=== PATIENT | female | born 1995 | race Caucasian/White ===

== ENCOUNTER 2021-11-13 15:49 | Emergency (ER) | payer OTHER, SELFPAY ==
[2021-11-13 15:55] VITALS: BP 103/63; PULSE 64
== END 2021-11-13 19:07 | disposition left against medical advice (07) ==
PROVIDERS: Emergency Provider Emergency Medicine
DX: R55 Syncope and collapse (principal)

== ENCOUNTER 2022-02-14 08:02 | Emergency (ER) | payer OTHER, SELFPAY ==
--- NOTE | ~2022-02-14 | CT_ITS ---
EXAMINATION: CT BRAIN AND CT CERVICAL SPINE WITHOUT CONTRAST CLINICAL INFORMATION: Seizure, fall and neck injury. COMPARISON: None. TECHNIQUE: 5 mm thin axial and reformatted 2 mm thin sagittal and coronal images of brain were obtained. Subsequently, axial 3 mm thin and reformatted 2 mm thin sagittal and coronal images of cervical spine were obtained. DLP: 1129 mGy-cm. FINDINGS: BRAIN: There is no acute intra-axial, extra-axial bleed, masses or midline shift. There is no acute infarction evolution. No edema. The lateral ventricles are asymmetrical in appearance but normal size and configuration without enlargement. Bone windows reveal no calvarial abnormality. Bilateral paranasal sinuses and mastoid air cells are well aerated. There are small polyps or retention cysts bilateral maxillary sinuses. There is no scalp soft tissue swelling. The mastoid sinuses are clear. CERVICAL SPINE: There is mild straightening of the cervical lordosis. The vertebral heights, alignment and disc heights are normal. There is no visible acute fracture, dislocation or subluxation seen. The craniovertebral junction and the C1-C2 alignment are normal. The prevertebral soft tissues are normal. There is a moderate-sized heterogeneous hypodense 1.6 cm nodule right thyroid lobe. The central trachea and the bronchi are widely patent. The lung apices are clear. CT/CT cervical spine wo con IMPRESSION: No acute intracranial process seen. There is no acute fracture, dislocation or subluxation seen. Moderate-sized right thyroid nodule.
--- NOTE | ~2022-02-14 | CT_ITS ---
EXAMINATION: CT BRAIN AND CT CERVICAL SPINE WITHOUT CONTRAST CLINICAL INFORMATION: Seizure, fall and neck injury. COMPARISON: None. TECHNIQUE: 5 mm thin axial and reformatted 2 mm thin sagittal and coronal images of brain were obtained. Subsequently, axial 3 mm thin and reformatted 2 mm thin sagittal and coronal images of cervical spine were obtained. DLP: 1129 mGy-cm. FINDINGS: BRAIN: There is no acute intra-axial, extra-axial bleed, masses or midline shift. There is no acute infarction evolution. No edema. The lateral ventricles are asymmetrical in appearance but normal size and configuration without enlargement. Bone windows reveal no calvarial abnormality. Bilateral paranasal sinuses and mastoid air cells are well aerated. There are small polyps or retention cysts bilateral maxillary sinuses. There is no scalp soft tissue swelling. The mastoid sinuses are clear. CERVICAL SPINE: There is mild straightening of the cervical lordosis. The vertebral heights, alignment and disc heights are normal. There is no visible acute fracture, dislocation or subluxation seen. The craniovertebral junction and the C1-C2 alignment are normal. The prevertebral soft tissues are normal. There is a moderate-sized heterogeneous hypodense 1.6 cm nodule right thyroid lobe. The central trachea and the bronchi are widely patent. The lung apices are clear. CT/CT head/brain wo con IMPRESSION: No acute intracranial process seen. There is no acute fracture, dislocation or subluxation seen. Moderate-sized right thyroid nodule.
[2022-02-14 08:15] VITALS: BP 108/48; BP 114/66; PULSE 74; PULSE 93; RESP 18; TEMP 36.5; O2SAT 98; O2SAT 99; BMI 25.8
--- NOTE | 2022-02-14 08:36 | ECG_ITS ---
Test Reason : SEIZURE Blood Pressure : / mmHG Vent. Rate : 078 BPM Atrial Rate : 078 BPM P-R Int : 146 ms QRS Dur : 084 ms QT Int : 392 ms P-R-T Axes : 077 088 074 degrees QTc Int : 446 ms Normal sinus rhythm with sinus arrhythmia Septal infarct , age undetermined - cuuld be related to lead placement/body habitus Abnormal ECG No previous ECGs available Referred By: Aleksandar Levin Electronically Signed By:TERELL MITCHELL
--- NOTE | 2022-02-14 08:36 | ED.GENADULT ---
HPI - General Adult General Chief complaint: Seizure Stated complaint: FEVER,SEIZURE FOUND BY MOM Time Seen by Provider: 02/14/22 08:19 Source: patient Mode of arrival: ambulatory Limitations: no limitations History of Present Illness HPI narrative: 27-year-old female brought to the ED for evaluation of seizure. Patient was found by mother having a seizure in the bathroom. Patient states she woke up this morning feeling off and left-sided tongue was hurting like she had bit it. Next thing patient remembers that she woke up in the bathroom. EMS states and mother informed her that she had a seizure. Mother informed her that she shaking and foaming at the mouth. Patient realized her underwear was soiled. Patient believe she has seizure in her sleep and when she woke up she realized she bit her tongue and had a 2nd seizure in the bathroom. Patient states a month ago she had also a seizure episode witnessed by her daughter and boyfriend. Patient states she went to 2 hospitals but never had been worked up for seizure because she left due to long waiting in the ER waiting room. Patient denies any neck stiffness, fever, or photophobia. Patient denies any paralysis of extremities, loss of vision, facial drooping, slurred speech, or drug use.. Related Data Previous Rx's Medication Instructions Recorded levetiracetam 500 mg tablet 500 mg PO Q12H 14 Days #28 tab 02/14/22 ([place]) Allergies Allergy/AdvReac Type Severity Reaction Status Date / Time No Known Allergies Allergy Unverified 08/04/20 17:02 [No Known Allergies*] seasonal Allergy Unknown Uncoded 11/12/19 00:00 Review of Systems Review of Systems: Seizure. Yes all other systems are reviewed and are negative Physical Exam ED Vital Signs: Vital Signs - 24 hr 02/14/22 08:15 02/14/22 14:54 Temperature 97.7 F 97.8 F Pulse Rate 74 70 Respiratory Rate 18 16 Blood Pressure 108/48 L 113/56 L Pulse Oximetry 99 BMI result Body Mass Index 25.8 Const General: cooperative, healthy appearing, comfortable, no acute distress, well developed, alert, awake and Physically active Orientation/consciousness: patient oriented x3 HENMT Head: Yes normal to inspection, Yes No palpable skull fracture present, Yes normocephalic, Yes atraumatic, No abrasion, No Acrocyanosis present, No Davis's sign, No contusion, No cranial bruits, No hematoma, No laceration, No occipital foramen tenderness, No palpable skull fracture, No raccoon eyes, No scalp lesion, No scalp tenderness, No Temporal artery tenderness present and No periorbital ecchymosis Ears: hearing grossly normal bilaterally, external ears normal, TM's normal bilaterally, EAC's normal, mastoids normal and no periauricular adenopathy Mouth/tongue images: 1. Bite mega/abrasion. Negative for active bleeding. Eyes Other: Negative for photophobia. Negative for nystagmus General: appearance normal, both eyes and all related structures Neck Other: Negative for signs of meningitis Neck: Yes normal visual inspection, Yes full ROM, Yes no lymphadenopathy, Yes no meningeal signs, Yes trachea midline, Yes supple, No anterior neck swelling, No lymphadenopathy, No midline deformity, No positive Brudzinski's sign, No positive Kernig's sign and No tender Chest Chest palpation & inspection: normal inspection of the chest and normal palpation of entire chest wall Resp Effort & Inspection: normal respiratory effort and able to speak in complete sentences Auscultation: clear to auscultation bilaterally Cardio Jugular venous distension: no JVD Heart sounds: S1 normal heart sound present and S2 normal heart sound present GI Inspection: Yes normal to inspection and No abdominal wall ecchymosis Palpation (GI): Soft to palpation, not firm, nontender, no guarding and not rigid General: No CVA tenderness and Yes no CVA tenderness Back/Spine/Pelvis Back: no CVA tenderness, No CVA tenderness and No back tenderness Skin General skin exam: no rashes or lesions noted and elasticity normal Neuro Other: Negative for facial droop. All extremities equal strength 5+. [id number] and rapid hand movement intact. Negative pronator drift. Negative slurred speech. Patient has movement in all extremities. Normal gait. Negative Romberg. Negative slurred speech. General: patient oriented x3 and no meningeal signs Extrem General: Yes normal to inspection and Yes full ROM Psych Appearance: grossly normal, well kempt and not disheveled Course Course Course Narrative: Presently history physical exam does not indicate meningitis. Patient denies ever having fever. Will do medical workup for seizure including labs, head CT scan, evaluation of electrolytes, and UA. Also EKG and troponin. Reevaluation(s) Reevaluation #1: Head CT came back negative for any brain mass or bleed. CT scan negative for any disc cervical fracture. Labs negative for any electrolyte deficiencies. EKG and troponin came back normal. Urine negative for signs of infection. Glucose normal. Patient given Keppra. Patient will be discharged with Keppra and given contact information for our neurologist. [facility] came and stated that they have tried to make appointment with Neurology throught the primary care in the past and has been hard to see so they will contact our neurologist. Not suspecting meningitis. Patient made aware of right thyroid nodule found on CT scan. Patient alert oriented x3. Negative for any neuro deficits. Patient denies ever having a fever. EMS report did not document any seizure. patient had normotensive temparature. Time: 14:22 Medical Decision Making MDM Narrative Medical decision making narrative: Seizure Lab Data Result diagrams: 02/14/22 09:52 02/14/22 09:52 Labs: Lab Results 02/14/22 02/14/22 02/14/22 Range/Units 09:51 09:52 09:52 WBC 12.4 H (4.8-10.8) X10*3/uL RBC 4.77 (4.20-5.50) X10*6/uL Hgb 13.9 (12.0-16.0) g/dl Hct 41.8 (37.0-47.0) % MCV 87.6 (80.0-98.0) fL MCH 29.1 (27.0-33.0) pg MCHC 33.3 (31.0-35.0) g/dl RDW 12.6 (11.0-16.0) % Plt Count 255 (160-400) X10*3/uL MPV 10.1 (9.4-12.3) fL Immature Gran % (Auto) 0.2 (0.0-0.4) % Neut % (Auto) 91.7 H (45-73) % Lymph % (Auto) 5.1 L (20-40) % [place] % (Auto) 2.6 (2-11) % Eos % (Auto) 0.2 (0-4) % Baso % (Auto) 0.2 (0-2) % Lymph # (Auto) 0.6 L (1.2-4.9) X10*3/uL [place] # (Auto) 0.3 (0.1-1.2) X10*3/uL Eos # (Auto) 0.0 (0.0-0.4) X10*3/uL Baso # (Auto) 0.0 (0.0-0.2) X10*3/uL Abs Immat Gran (auto) 0.03 (0.00-0.03) X10*3/uL Absolute Neuts (auto) 11.4 H (2.0-8.3) x10*3/uL Absolute Nucleated RBC 0.000 (0.0-0.012) X10*3/uL Nucleated RBC % (auto) 0.0 (0.0-0.2) /100WBC Smear Tech's Comments VERIFIED PT 12.3 (9.9-13.0) SEC INR 1.1 (0.9-1.1) APTT 28.3 (24.1-38.0) SEC Sodium (135-145) mmol/L Potassium (3.3-5.1) mmol/L Chloride (96-108) mmol/L Carbon Dioxide (22-29) mmol/L Anion Gap (12-20) BUN (9-16) mg/dL Creatinine (0.5-1.4) mg/dL Estim Creat Clear Calc Estimated GFR Random Glucose (60-115) mg/dL Calcium (8.4-10.2) mg/dL Magnesium (1.6-2.6) mg/dL Total Bilirubin (0.0-1.0) mg/dL AST (5-31) U/L ALT (0-31) U/L Alkaline Phosphatase (39-117) U/L Troponin I High Sens < 3.5 (<3.5-17.0) ng/L Total Protein (6.5-8.0) g/dL Albumin (3.5-5.0) g/dL Beta HCG, Quant mIU/mL Urine Color Urine Appearance Urine pH (5.0-8.0) Ur Specific [place] (1.005-1.025) Urine Protein (NEG-TRACE) MG/DL Urine Glucose (UA) (NEG) MG/DL Urine Ketones (NEG) MG/DL Urine Blood (NEG) Urine Nitrite (NEG) Ur Leukocyte Esterase (NEG) Influenza Type A (PCR) (Negative) Influenza Type B (PCR) (Negative) RSV RNA Qual (PCR) (Negative) SARS-CoV-2 RNA (RT-PCR) (Negative) 02/14/22 02/14/22 02/14/22 Range/Units 09:52 09:52 13:54 WBC (4.8-10.8) X10*3/uL RBC (4.20-5.50) X10*6/uL Hgb (12.0-16.0) g/dl Hct (37.0-47.0) % MCV (80.0-98.0) fL MCH (27.0-33.0) pg MCHC (31.0-35.0) g/dl RDW (11.0-16.0) % Plt Count (160-400) X10*3/uL MPV (9.4-12.3) fL Immature Gran % (Auto) (0.0-0.4) % Neut % (Auto) (45-73) % Lymph % (Auto) (20-40) % [place] % (Auto) (2-11) % Eos % (Auto) (0-4) % Baso % (Auto) (0-2) % Lymph # (Auto) (1.2-4.9) X10*3/uL [place] # (Auto) (0.1-1.2) X10*3/uL Eos # (Auto) (0.0-0.4) X10*3/uL Baso # (Auto) (0.0-0.2) X10*3/uL Abs Immat Gran (auto) (0.00-0.03) X10*3/uL Absolute Neuts (auto) (2.0-8.3) x10*3/uL Absolute Nucleated RBC (0.0-0.012) X10*3/uL Nucleated RBC % (auto) (0.0-0.2) /100WBC Smear Tech's Comments PT (9.9-13.0) SEC INR (0.9-1.1) APTT (24.1-38.0) SEC Sodium 139 (135-145) mmol/L Potassium 4.2 (3.3-5.1) mmol/L Chloride 108 (96-108) mmol/L Carbon Dioxide 25 (22-29) mmol/L Anion Gap 10 L (12-20) BUN 13 (9-16) mg/dL Creatinine 0.81 (0.5-1.4) mg/dL Estim Creat Clear Calc 93.2 Estimated GFR > 60 Random Glucose 111 (60-115) mg/dL Calcium 9.4 (8.4-10.2) mg/dL Magnesium 2.3 (1.6-2.6) mg/dL Total Bilirubin 0.9 (0.0-1.0) mg/dL AST 10 (5-31) U/L ALT 13 (0-31) U/L Alkaline Phosphatase 62 (39-117) U/L Troponin I High Sens (<3.5-17.0) ng/L Total Protein 7.1 (6.5-8.0) g/dL Albumin 4.6 (3.5-5.0) g/dL Beta HCG, Quant < 2 mIU/mL Urine Color YELLOW Urine Appearance HAZY Urine pH 5.5 (5.0-8.0) Ur Specific [place] >= 1.030 H (1.005-1.025) Urine Protein NEG (NEG-TRACE) MG/DL Urine Glucose (UA) NEG (NEG) MG/DL Urine Ketones 40 (NEG) MG/DL Urine Blood NEG (NEG) Urine Nitrite NEG (NEG) Ur Leukocyte Esterase NEG (NEG) Influenza Type A (PCR) NEGATIVE (Negative) Influenza Type B (PCR) NEGATIVE (Negative) RSV RNA Qual (PCR) NEGATIVE (Negative) SARS-CoV-2 RNA (RT-PCR) NEGATIVE (Negative) ECG Data Interpretation: Normal sinus rhythm. Ventricular rate 78. Pr interval 146. QRS 84. QTC 446. Negative STEMI Discharge Plan Discharge Clinical Impression: Seizure Patient Disposition: Home, Self-Care Instructions: New-Onset Seizure in Adults (ED) Additional Instructions: You need to follow-up with your primary care provider and neurologist for further investigation into new seizures you have been having for the past 2 months. He will be discharged with Chas. Return to the ED immediately for any neck stiffness, fever, chills, nausea, vomiting, paralysis of extremities, tractable seizure, chest pain, shortness of breath, weakness, dizziness, or any other concerning symptoms. Prescriptions: New levetiracetam [Keppra] 500 mg tablet 500 mg PO Q12H 14 Days Qty: 28 0RF Referrals: Carlos Olsen MD [Physician] - 2 days (New onset seizure the past 2 months.) Stand Alone Forms: Work/School Release Interventions: ED Discharge Assessment Last Done: 02/14/22 14:56 Discharge Date/Time: 02/14/22 14:56 Print Language: Sinhala
[2022-02-14] MEDS: Acetaminophen 325 MG TABLET 650 MG PO (08:43)
[2022-02-14] MEDS: 0.9 % Sodium Chloride 1,000 ML 999 ML IV (08:45)
[2022-02-14 09:59] LABS: Basophils Percent Auto 0.2 % (0-2); Eosinophils Percent Auto 0.2 % (0-4); Hematocrit 41.8 % (37.0-47.0); Hemoglobin 13.9 g/dl (12.0-16.0); Imm Gran Abs Auto 0.03 X10*3/uL (0.00-0.03); Imm Gran Pct Auto 0.2 % (0.0-0.4); Lymphocytes Absolute Auto 0.6 X10*3/uL (1.2-4.9); Lymphocytes Percent Auto 5.1 % (20-40); MANUAL DIFF FLAG SCAN; Mean Corpuscular HGB Conc 33.3 g/dl (31.0-35.0); Mean Corpuscular Hemoglobin 29.1 pg (27.0-33.0); Mean Corpuscular Volume 87.6 fL (80.0-98.0); Mean Platelet Volume 10.1 fL (9.4-12.3); Monocytes Absolute Auto 0.3 X10*3/uL (0.1-1.2); Monocytes Percent Auto 2.6 % (2-11); Neutrophils Absolute Auto 11.4 x10*3/uL (2.0-8.3); Neutrophils Percent Auto 91.7 % (45-73); Platelet Count 255 X10*3/uL (160-400); Red Blood Count 4.77 X10*6/uL (4.20-5.50); Red Cell Distribution Width 12.6 % (11.0-16.0); SCAN SMEAR FLAG 1; White Blood Count 12.4 X10*3/uL (4.8-10.8)
[2022-02-14 10:08] LABS: INTERNATIONAL NORM RATIO 1.1 (0.9-1.1); Prothrombin Time 12.3 SEC (9.9-13.0)
[2022-02-14 10:11] LABS: Partial Thromboplastin Time 28.3 SEC (24.1-38.0)
[2022-02-14 10:21] LABS: Alanine Aminotransferase 13 U/L (0-31); Albumin Level 4.6 g/dL (3.5-5.0); Alkaline Phosphatase 62 U/L (39-117); Anion Gap 10 (12-20); Aspartate Amino Transferase 10 U/L (5-31); Bilirubin Total 0.9 mg/dL (0.0-1.0); Blood Urea Nitrogen 13 mg/dL (9-16); Calcium 9.4 mg/dL (8.4-10.2); Carbon Dioxide 25 mmol/L (22-29); Chloride 108 mmol/L (96-108); Creatinine Clr Calc Pharmacy 93.2; Estimated Glomerular Filt Rate > 60; Glucose Random 111 mg/dL (60-115); Magnesium 2.3 mg/dL (1.6-2.6); Potassium 4.2 mmol/L (3.3-5.1); Sodium 139 mmol/L (135-145); Total Protein 7.1 g/dL (6.5-8.0)
[2022-02-14 10:25] LABS: SLIDE REVIEW VERIFIED
[2022-02-14 10:27] LABS: Troponin-I High Sensitivity < 3.5 ng/L (<3.5-17.0)
[2022-02-14 10:35] LABS: Influenza A PCR NEGATIVE (Negative); Influenza B PCR NEGATIVE (Negative); Resp Syncy Virus RNA Qual PCR NEGATIVE (Negative); SARS COV2 PCR INHOUSE NEGATIVE (Negative)
[2022-02-14 10:43] LABS: HCG Quantitative < 2 mIU/mL
[2022-02-14] MEDS: levETIRAcetam in NaCl (iso-os) 1,000 MG/100 ML PIGGYBACK 400 MG IV (11:11)
[2022-02-14 14:02] LABS: Appearance Urine HAZY; Color Urine YELLOW; Glucose Urine UA NEG (NEG); Leukocyte Esterase Urine NEG (NEG); Nitrite Urine NEG (NEG); PH 5.5 (5.0-8.0); Specific Gravity - Urine >= 1.030 (1.005-1.025); Urine Blood NEG (NEG); Urine Ketones 40 MG/DL (NEG); Urine Protein NEG (NEG-TRACE)
[2022-02-14 14:54] VITALS: BP 113/56; PULSE 70; RESP 16; TEMP 36.6
== END 2022-02-14 14:56 | disposition home or self-care (01) ==
PROVIDERS: Physician Assistant; Emergency Provider Emergency Medicine; PCP Internal Medicine
DX: R56.9 Unspecified convulsions (principal); S00.512A Abrasion of oral cavity, initial encounter; X58.XXXA Exposure to other specified factors, initial encounter; Z20.822 Contact with and (suspected) exposure to COVID-19; Y93.9 Activity, unspecified; Y92.019 Unspecified place in single-family (private) house as the place of occurrence of the external cause; Y99.9 Unspecified external cause status
CPT/HCPCS: 0241U; 36415; 70450; 72125; 80053; 81003; 83735; 84484; 84702; 85025; 85610; 85730; 93005; 96361; 96374; 99284; J1953

== ENCOUNTER 2022-03-26 08:49 | Outpatient (REF) | payer OTHER, SELFPAY ==
--- NOTE | ~2022-03-26 | MR_ITS ---
EXAMINATION: MR BRAIN WITHOUT AND WITH CONTRAST CLINICAL INFORMATION: 27-year-old with epilepsy. COMPARISON: 02/14/2022 CT brain. TECHNIQUE: Multiplanar, multisequence MRI of the brain was obtained before and after the intravenous administration of 7 mL Gadavist. FINDINGS: BRAIN VOLUME: Within normal limits within the limitations of a qualitative assessment. STRUCTURAL: No malformations. BRAIN AND MENINGES: DWI sequence demonstrates no restricted diffusion. Specifically, there is no evidence for acute or subacute cerebral ischemia. Gradient refocused imaging demonstrates no evidence for hemorrhage, hemosiderin staining or abnormal mineral deposition. No extra-axial fluid collections are identified. The mesial temporal lobe structures are normal in morphology and signal intensity. There is no abnormal brain parenchymal or leptomeningeal enhancement, space-occupying process or mass effect. There is a tiny developmental venous anomaly in the anterior right frontal lobe. Jain-white matter interface is well maintained. No obvious cortical dysplasia within the limitations of the study. The brain is normal in signal intensity. VENTRICLES AND SUBARACHNOID SPACES: The ventricular system and subarachnoid spaces are within the normal range of variation. No hydrocephalus. ORBITAL STRUCTURES: The visualized orbital structures are grossly unremarkable within the limitations of the study. VASCULAR: Signal voids are noted in the visualized major intracranial vessels. OSSEOUS STRUCTURES, SINUSES/MASTOIDS, EXTRACRANIAL SOFT TISSUES: Nonspecific retained secretions in the left mastoid are noted. There is considerable mucosal thickening with probable underlying retention cysts in the maxillary sinuses bilaterally with extensive mucosal inflammatory changes in the ethmoid complex and, to a lesser degree, in the right frontal sinus. Osseous marrow signal intensity appears grossly within normal limits. The visualized extracranial soft tissue structures are unremarkable. MR/MR head/brain wo/w con IMPRESSION: 1. Unremarkable MRI of the brain without and with contrast. No focal lesion or abnormal enhancement identified. 2. Paranasal sinus inflammatory changes and nonspecific retained secretions in the left mastoid.
== END 2022-03-26 08:50 | disposition home or self-care (01) ==
LOC: HO.MRI 08:49
PROVIDERS: Visit Provider Psychiatry & Neurology Neurology
DX: G40.909 Epilepsy, unspecified, not intractable, without status epilepticus (principal)
CPT/HCPCS: 70553; A9585

== ENCOUNTER 2022-04-20 12:47 | Outpatient (REF) | payer OTHER, SELFPAY ==
--- NOTE | 2022-04-25 11:37 | MHC.AU.HAS ---
Hearing Aid Evaluation Date of Visit: 04/20/22 Historical Information: Description of Hearing: Right Ear - Moderate mixed hearing loss through all frequencies Left Ear - Normal hearing thresholds 250-3000 Hz, sloping to mild loss at 8000 Hz Current personal amplification information, if applicable: NONE Summary: History of childhood ear infections which has deteriorated the ossicles. Hearing Aid Prescription: Based on the individual?s shared listening needs, communication environments, dexterity, desire for connectivity, and personal preferences, the following prescription for amplification has been made: Right ear: Communication Arts Lecturer: [employer] 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
== END 2022-04-20 12:48 | disposition home or self-care (01) ==
LOC: HO.HAP 12:47
PROVIDERS: Visit Provider Otolaryngology
DX: Z46.1 Encounter for fitting and adjustment of hearing aid (principal); H90.71 Mixed conductive and sensorineural hearing loss, unilateral, right ear, with unrestricted hearing on the contralateral side
CPT/HCPCS: 92590; V5010; V5275

== ENCOUNTER 2022-05-17 13:50 | Outpatient (REF) | payer OTHER, SELFPAY ==
--- NOTE | 2022-05-23 08:32 | MHC.AU.HAR ---
Hearing Instrument Fitting- Adult- Right Ear Date of Visit: 05/17/22 Hearing Instruments Dispensed: Right Ear: Rate And Cost Analyst: [employer] Model: [employer] Quattro 7 ITC Serial Number: [id number] Repair Warranty: 06/06/2025 Loss and Damage Warranty: 06/06/2025 Battery Size: 312 Color: Expresso Office Runner: MP Summary of Fitting: Hearing aid fits well in patient's ear. Feedback calibration run. Verifit performed and levels adjusted to better reach targets. Patient was pleased with the sound of the hearing instrument. Hearing aid care and maintenance were discussed and practiced. Hearing aid was not paired to her phone at this time, since she typically uses her left, unaided, ear on the phone. Recommendations: Patient will call for follow-up if needed. 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
== END 2022-05-17 13:51 | disposition home or self-care (01) ==
LOC: HO.HAP 13:50
PROVIDERS: Visit Provider Otolaryngology
DX: Z46.1 Encounter for fitting and adjustment of hearing aid (principal); H90.71 Mixed conductive and sensorineural hearing loss, unilateral, right ear, with unrestricted hearing on the contralateral side
CPT/HCPCS: V5011; V5020; V5241; V5255; V5266

== ENCOUNTER 2023-07-06 19:56 | Emergency (ER) | payer OTHER, SELFPAY ==
--- NOTE | ~2023-07-06 | US_ITS ---
EXAMINATION: US OBSTETRICAL ULTRASOUND CLINICAL INFORMATION: . Vaginal bleeding. COMPARISON: None available. LMP: 05/31/2023. Gestational age by maternal dates is 5 weeks 1 day. Estimated date of delivery by maternal dates is 03/06/2023. TECHNIQUE: Ultrasound of the maternal pelvis is performed using transabdominal and transvaginal transducers. Transvaginal imaging is performed due to inadequate visualization transabdominally. M-mode Doppler is also performed. FINDINGS: There is no intrauterine identified. Anteverted uterus. The uterus measures 10 x 4.8 x 5.5 cm. The endometrium is homogenous measuring 0.3 cm in thickness. MATERNAL ADNEXA: The right maternal ovary measures 3.3 x 1.5 x 1.8 cm. The left maternal ovary measures 2.2 x 1.1 x 1.7 cm. Trace pelvic free fluid. No maternal pelvic ascites. Normal arterial and venous spectral waveforms at both ovaries. US/US OB pelvic and transvaginal IMPRESSION: There is no intrauterine identified. This may be secondary to early stage of . No ectopic seen. Continued follow-up recommended.
[2023-07-06 20:15] VITALS: BP 128/62; PULSE 61; RESP 17; TEMP 37.3; O2SAT 99; BMI 29.0
--- NOTE | 2023-07-06 20:15 | ED_ITS ---
HPI - General Chief complaint: Vaginal Bleeding Stated complaint: vaginal bleeding edc 03/04 Time Seen by Provider: 07/06/23 22:16 Source: patient Mode of arrival: ambulatory Limitations: no limitations History of Present Illness HPI Narrative: 28-year-old female presents approximately 5-6 weeks with spotting, clots and bleeding. Patient denies any abdominal pain. Symptoms are mild to moderate nature. She was seen by her OBGYN who did urine test which was positive. Her previous pregnancies were removed without event. There is no clear relieving or exacerbating features. Patient denies any significant nausea vomiting. Related Data Previous Rx's Medication Instructions Recorded levetiracetam 500 mg tablet 500 mg PO Q12H 14 days #28 tabs 02/14/22 (Chas) Allergies Allergy/AdvReac Type Severity Reaction Status Date / Time No Known Allergies Allergy Unverified 08/04/20 17:02 [No Known Allergies*] seasonal Allergy Unknown Uncoded 11/12/19 00:00 Review of Systems Review of Systems: CONSTITUTIONAL: Denies weight loss, fever and chills. HEENT: Denies changes in vision and hearing. RESPIRATORY: Denies SOB and cough. CV: Denies palpitations no CP. GI: Denies abdominal pain, nausea, vomiting and diarrhea. : Denies dysuria and urinary frequency. MSK: Denies myalgia and joint pain. SKIN: Denies rash and pruritus. NEUROLOGICAL: Denies headache and syncope. PSYCHIATRIC: Denies recent changes in mood. Denies anxiety and depression. All other ROS are negative unless in HPI PMFSH Social History Social History Advance Directives: No Advance Directives Information Provided: No Physical Exam Vital Signs: Vital Signs: Last Vital Signs Temp 97.8 F 07/07/23 00:38 Pulse 58 07/07/23 00:38 Resp 18 07/07/23 00:38 BP 97/52 L 07/07/23 00:38 Pulse Ox 96 07/07/23 00:38 O2 Del Method Room Air 07/07/23 00:38 BMI result Body Mass Index 29.0 GEN: Well developed, no acute distress, alert, oriented HEENT: Normocephalic, atraumatic, normal external ears, nose appears normal, no oropharyngeal edema or exudates Eyes: Normal to appearance Neck: Supple, no lymphadenopathy Respiratory: Talks in complete sentences, no respiratory distress, clear to auscultation bilaterally Cardiovascular: Regular rate and rhythm, no murmurs rubs or gallops Abdomen: Soft, nontender, nondistended, no guarding, no rebound Back: No CVA tenderness Extremities: No clubbing cyanosis or edema Neurologic: No focal neurologic deficits, cranial nerves 2-12 intact, strength is 5/5 bilaterally Skin: No rash Course Course Course Narrative: This is a rapid medical exam. deferred additional HPI, ROS, PE to primary provider. 28 yo female here with complaints of vaginal bleeding since last evening with no associated abdominal cramping. Currently 5 3/7 weeks , WILLIAN 03/04/24, LMP 05/30. MS 1 Going to [facility] for care. Has not had US to confirm IUP. WIll need labs, UA VSS Reevaluation(s) Reevaluation #1: Patient is Rh positive no indication for RhoGAM Time: 23:14 Reevaluation #2: The workup is complete. There is no IUP. Patient will need serial hCG. Time: 00:47 Medical Decision Making Medical Decision Making [facility] Narrative: 28-year-old female presents with , vaginal bleeding spotting. Patient proxy 5-6 weeks . She has no abdominal pain or tenderness. Will obtain an ultrasound. Will obtain quantitative hCG an Rh status. Differential diagnosis includes bleeding during 1st trimester, miscarriage, spontaneous miscarriage Differential Diagnosis Differential Diagnoses: The differential diagnosis associated with the presentation includes (See above) Lab Data [facility] Lab Attestation statement: I reviewed the patient's lab results. 07/06/23 20:34 07/06/23 20:34 Labs: Lab Results 07/06/23 07/06/23 07/06/23 Range/Units 20:34 20:34 20:34 WBC 5.0 (4.8-10.8) X10*3/uL RBC 4.57 (4.20-5.50) X10*6/uL Hgb 13.0 (12.0-16.0) g/dl Hct 39.4 (37.0-47.0) % MCV 86.2 (80.0-98.0) fL MCH 28.4 (27.0-33.0) pg MCHC 33.0 (31.0-35.0) g/dl RDW 12.8 (11.0-16.0) % Plt Count 212 (160-400) X10*3/uL MPV 10.0 (9.4-12.3) fL Immature Gran % (Auto) 0.2 (0.0-0.4) % Neut % (Auto) 57.7 (45-73) % Lymph % (Auto) 32.9 (20-40) % [place] % (Auto) 6.6 (2-11) % Eos % (Auto) 2.0 (0-4) % Baso % (Auto) 0.6 (0-2) % Lymph # (Auto) 1.6 (1.2-4.9) X10*3/uL [place] # (Auto) 0.3 (0.1-1.2) X10*3/uL Eos # (Auto) 0.1 (0.0-0.4) X10*3/uL Baso # (Auto) 0.0 (0.0-0.2) X10*3/uL Abs Immat Gran (auto) 0.01 (0.00-0.03) X10*3/uL Absolute Neuts (auto) 2.9 (2.0-8.3) x10*3/uL Absolute Nucleated RBC 0.000 (0.0-0.012) X10*3/uL Nucleated RBC % (auto) 0.0 (0.0-0.2) /100WBC Sodium 141 (135-145) mmol/L Potassium 3.7 (3.3-5.1) mmol/L Chloride 108 (96-108) mmol/L Carbon Dioxide 26 (22-29) mmol/L Anion Gap 11 L (12-20) BUN 10 (9-16) mg/dL Creatinine 0.80 (0.5-1.4) mg/dL Estim Creat Clear Calc 98.9 Estimated GFR > 60 Random Glucose 90 (60-115) mg/dL Calcium 9.8 (8.4-10.2) mg/dL Total Bilirubin 0.2 (0.0-1.0) mg/dL Direct Bilirubin < 0.2 (0.0-0.5) mg/dL AST 11 (5-31) U/L ALT 16 (0-31) U/L Alkaline Phosphatase 53 (39-117) U/L Total Protein 6.8 (6.5-8.0) g/dL Albumin 4.2 (3.5-5.0) g/dL Beta HCG, Quant 7 mIU/mL Blood Type A Positive Independent Interpretation I performed an independent interpretation of an: Ultrasound (Endometrial thickening, no IUP) Radiology Impression Discussion of test interpretation with radiology: I have reviewed the radiolog ist's reading. Radiologist Impression: US/US OB pelvic and transvaginal IMPRESSION: There is no intrauterine identified. This may be secondary to early stage of . No ectopic seen. Continued follow-up recommended. Dictated By: Greg Covarrubias MD Signed By: <Electronically signed by Greg Covarrubias MD in OV> 07/07/23 0027 Chronic Conditions Patient?s care impacted by: Other (Seizure disorder) Discharge Plan Discharge Clinical Impression: Vaginal bleeding Patient Disposition: Home, Self-Care Instructions: Threatened Miscarriage (ED) Prescriptions: No Action levetiracetam [Keppra] 500 mg tablet 500 mg PO Q12H 14 Days Qty: 28 0RF Referrals: Joselin Adamson MD [Primary Care Provider] - (For serial HCG testing)
[2023-07-06 20:40] LABS: MANUAL DIFF FLAG NO
[2023-07-06 20:48] LABS: Basophils Percent Auto 0.6 % (0-2); Eosinophils Absolute Auto 0.1 X10*3/uL (0.0-0.4); Hematocrit 39.4 % (37.0-47.0); Imm Gran Abs Auto 0.01 X10*3/uL (0.00-0.03); Imm Gran Pct Auto 0.2 % (0.0-0.4); Lymphocytes Absolute Auto 1.6 X10*3/uL (1.2-4.9); Lymphocytes Percent Auto 32.9 % (20-40); Mean Corpuscular Hemoglobin 28.4 pg (27.0-33.0); Mean Corpuscular Volume 86.2 fL (80.0-98.0); Monocytes Absolute Auto 0.3 X10*3/uL (0.1-1.2); Monocytes Percent Auto 6.6 % (2-11); Neutrophils Absolute Auto 2.9 x10*3/uL (2.0-8.3); Neutrophils Percent Auto 57.7 % (45-73); Platelet Count 212 X10*3/uL (160-400); Red Blood Count 4.57 X10*6/uL (4.20-5.50); Red Cell Distribution Width 12.8 % (11.0-16.0)
[2023-07-06 21:02] LABS: Alanine Aminotransferase 16 U/L (0-31); Albumin Level 4.2 g/dL (3.5-5.0); Alkaline Phosphatase 53 U/L (39-117); Anion Gap 11 (12-20); Aspartate Amino Transferase 11 U/L (5-31); Bilirubin Direct < 0.2 mg/dL (0.0-0.5); Bilirubin Total 0.2 mg/dL (0.0-1.0); Blood Urea Nitrogen 10 mg/dL (9-16); Calcium 9.8 mg/dL (8.4-10.2); Carbon Dioxide 26 mmol/L (22-29); Chloride 108 mmol/L (96-108); Creatinine Clr Calc Pharmacy 98.9; Estimated Glomerular Filt Rate > 60; Glucose Random 90 mg/dL (60-115); HCG Quantitative 7 mIU/mL; Potassium 3.7 mmol/L (3.3-5.1); Sodium 141 mmol/L (135-145); Total Protein 6.8 g/dL (6.5-8.0)
[2023-07-07 00:38] VITALS: BP 97/52; PULSE 58; RESP 18; TEMP 36.6; O2SAT 96
--- NOTE | 2023-07-07 00:57 | PC.NURSE ---
pt not in room for D/C instructions. Told triage staff they were D/C.
== END 2023-07-07 01:00 | disposition home or self-care (01) ==
PROVIDERS: Nurse Practitioner Family; Emergency Provider Emergency Medicine; PCP Internal Medicine
DX: O26.851 Spotting complicating pregnancy, first trimester (principal); Z3A.01 Less than 8 weeks gestation of pregnancy
CPT/HCPCS: 36415; 76801; 76817; 80048; 80076; 84702; 85025; 86900; 86901; 99283; 99284

== ENCOUNTER 2024-08-24 11:00 | Emergency (ER) | payer OTHER, SELFPAY ==
[2024-08-24 11:29] VITALS: BP 105/51; PULSE 91; RESP 20; TEMP 36.7; O2SAT 98; BMI 28.1
--- NOTE | 2024-08-24 11:30 | ED_ITS ---
HPI - Seizure General Chief Complaint: Seizure Stated Complaint: has seizure this am Time Seen by Provider: 08/24/24 19:11 Source: patient Limitations: no limitations History of Present Illness ED Provider: Gwen peters PA-C HPI Narrative: 29-year-old female with history of epilepsy on keppra 1000 mg bid, anemia, who is currently 8 months (WILLIAN 11/02) who presents to the ER for evaluation after she had a seizure this morning. Patient apparently rolled off her bed when she had the seizure, not complaining of abdominal pain or vaginal bleeding, she complains of left ankle pain. Patient states 2 months ago, her neurologist changed her Keppra to 1000 mg twice a day. Patient states she has been adherent with the medication. She has not been ill recently no nausea vomiting diarrhea or fevers. Related Data Previous Rx's ?Medication ?Instructions ?Recorded levetiracetam 500 mg tablet 500 mg PO Q12H 14 days #28 tabs 02/14/22 (Keppra) Allergies Allergy/AdvReac Type Severity Reaction Status Date / Time No Known Allergies Allergy Verified 08/24/24 11:32 [No Known Allergies*] seasonal Allergy Unknown Itching Uncoded 08/24/24 11:32 Review of Systems 2 Review of Systems: Yes all other systems are reviewed and are negative Constitutional: Constitutional: Denies fever(s) Cardiovascular: Cardiovascular: Denies chest pain Respiratory: Respiratory: Denies cough Gastrointestinal: Gastrointestinal: Denies abdominal pain, Denies diarrhea, Denies nausea and Denies vomiting PMFSH Past Medical History Attestation statement: The following information was validated with the patient. Social History Social History Advance Directives: No Advance Directives Information Provided: Yes Physical Exam 2 Vital Signs: Vital Signs: Last Vital Signs Temp 98 F 08/24/24 17:57 Pulse 93 08/24/24 17:57 Resp 19 08/24/24 17:57 BP 106/48 L 08/24/24 17:57 Pulse Ox 98 08/24/24 17:57 O2 Del Method Room Air 08/24/24 17:57 BMI result Body Mass Index 28.1 Const: Other: Alert, well in appearance Orientation/consciousness: patient oriented x3 Resp: Effort & Inspection: normal respiratory effort Cardio: Other: Normal peripheral perfusion GI: Other: Abdomen is soft, nontender Skin: Other: Warm dry no rash Neuro: General: patient oriented x3, no focal motor deficits and CN's II-XI intact bilaterally Extrem: Other: The left ankle is swollen along the lateral aspect, with the overlying ecchymosis, limited flexion and extension secondary to pain she is in an Aircast she is ambulatory Psych: Other: Calm cooperative Course Course Course Narrative: This is a Rapid Medical Examination (RME) performed by Brunilda Lea PA-C in triage. Full HPI, ROS, assessment and treatment plan per primary provider in the Main ED. 29 yo female with history of epilepsy on keppra 1000 mg bid, anemia, who is currently 8 months (WILLIAN 11/02) who presents to the ER for evaluation after she had a seizure this morning. her daughter found her on the ground, she thinks she fell out of bed. reports med compliant. she reports normal movement, no leaking of fluid or contractions. reports ankle pain, neck pain, generalized body aches. last seizure was 2 weeks ago and OB was aware, she is getting monitored q2 weeks. Plan: lab workup, imaging per primary provider Medications Administered Discontinued Medications Generic Name Dose Route Start Last Admin Trade Name Freq PRN Reason Stop Dose Admin Lactated Ringer's 1,000 mls @ 999 mls/hr 08/24/24 18:00 08/24/24 19:41 Lr IV 08/24/24 19:00 Not Given .Q1H1M LOYDA Ondansetron HCl 4 mg 08/24/24 17:57 08/24/24 17:59 Ondansetron Odt 4 Mg Tab.Rapdis TRANSLINGU 08/24/24 17:58 4 mg ONCE ONE Administration Medical Decision Making Medical Decision Making [facility] Narrative: 29-year-old female with history of epilepsy on keppra 1000 mg bid, anemia, who is currently 8 months (WILLIAN 11/02) who presents to the ER for evaluation after she had a seizure this morning. Patient apparently rolled off her bed when she had the seizure, not complaining of abdominal pain or vaginal bleeding, she complains of left ankle pain. Patient states 2 months ago, her neurologist changed her Keppra to 1000 mg twice a day. Patient states she has been adherent with the medication. She has not been ill recently no nausea vomiting diarrhea or fevers. Problem: Seizure disorder in History: Per patient I have considered the following differential diagnoses: Breakthrough seizure, medication nonadherence, preeclampsia, illness,Fracture, dislocation, sprain: Plan: Patient had a breakthrough seizure, she has been having them. I have low suspicion for injury to the baby, performed bedside obstetric ultrasound, there was active movement, heart rate is 158. She is not have any vaginal bleeding or new onset GI symptoms. She can call her neurologist for further guidance on dosing of her Keppra. She has been given her 1000 mg of Keppra this evening. In regard to the ankle, it is likely a sprain, she is ambulatory, her discomfort is not severe, low suspicion for fracture, the patient declines an x- ray. Screening labs were obtained from triage and completed I have independently reviewed the following tests: Labs: No leukocytosis, not anemic, no electrolyte abnormality, urine not infected Lab Data 08/24/24 11:52 08/24/24 11:52 Labs: Lab Results 08/24/24 Range/Units 11:52 WBC 12.5 H (4.8-10.8) X10*3/uL RBC 4.17 L (4.20-5.50) X10*6/uL Hgb 12.4 (12.0-16.0) g/dl Hct 37.9 (37.0-47.0) % MCV 90.9 (80.0-98.0) fL MCH 29.7 (27.0-33.0) pg MCHC 32.7 (31.0-35.0) g/dl RDW 13.8 (11.0-16.0) % Plt Count 172 (160-400) X10*3/uL MPV 9.7 (9.4-12.3) fL Immature Gran % (Auto) 0.8 H (0.0-0.4) % Neut % (Auto) 88.3 H (45-73) % Lymph % (Auto) 7.2 L (20-40) % [place] % (Auto) 3.1 (2-11) % Eos % (Auto) 0.4 (0-4) % Baso % (Auto) 0.2 (0-2) % Lymph # (Auto) 0.9 L (1.2-4.9) X10*3/uL [place] # (Auto) 0.4 (0.1-1.2) X10*3/uL Eos # (Auto) 0.1 (0.0-0.4) X10*3/uL Baso # (Auto) 0.0 (0.0-0.2) X10*3/uL Abs Immat Gran (auto) 0.10 H (0.00-0.03) X10*3/uL Absolute Neuts (auto) 11.0 H (2.0-8.3) x10*3/uL Absolute Nucleated RBC 0.000 (0.0-0.012) X10*3/uL Nucleated RBC % (auto) 0.0 (0.0-0.2) /100WBC Sodium 138 (135-145) mmol/L Potassium 4.0 (3.3-5.1) mmol/L Chloride 105 (96-108) mmol/L Carbon Dioxide 25 (22-29) mmol/L Anion Gap 12 (12-20) BUN 6 L (9-16) mg/dL Creatinine 0.62 (0.5-1.4) mg/dL Estim Creat Clear Calc 124.7 Estimated GFR > 60 Random Glucose 94 (60-115) mg/dL Calcium 8.9 D (8.4-10.2) mg/dL Magnesium 1.8 (1.6-2.6) mg/dL Total Bilirubin 0.3 (0.0-1.0) mg/dL Direct Bilirubin < 0.1 (0.0-0.5) mg/dL AST 14 (5-31) U/L ALT 14 (0-31) U/L Alkaline Phosphatase 63 (39-117) U/L Total Creatine Kinase 154 H (26-140) U/L Total Protein 6.5 (6.5-8.0) g/dL Albumin 3.5 (3.5-5.0) g/dL Urine Color Yellow Urine Appearance Clear Urine pH 8.5 (5.0-9.0) Ur Specific [place] 1.020 (1.005-1.025) Urine Protein Trace (Neg-Trace) mg/dL Urine Glucose (UA) Negative (Negative) mg/dL Urine Ketones Negative (Negative) mg/dL Urine Blood Negative (Negative) Urine Nitrite Negative (Negative) Ur Leukocyte Esterase Moderate (2+) H (Negative) Urine RBC 0-2 (0-2) /HPF Urine WBC 0-5 (0-5) /HPF Ur Squamous Epith Cells 3-5 (0-2) /HPF Urine Bacteria 1+ (None Seen) Hyaline Casts 0-2 (0-2) /LPF Discharge Plan Discharge Clinical Impression: Epileptic seizure Ankle sprain Qualifiers: Encounter type: initial encounter Involved ligament of ankle: unspecified ligament Laterality: left Qualified Code(s): S93.402A - Sprain of unspecified ligament of left ankle, initial encounter Patient Disposition: Home, Self-Care Instructions: Ankle Sprain (ED) Additional Instructions: All of your labs were normal, you also sustained an ankle sprain. See home care instructions. You can use [id number] Tylenol 1000 mg taken every 8 hours. In regard to the breakthrough seizure that you had, you need to call your neurologist tomorrow for further guidance on potential medication adjustment. Prescriptions: No Action levetiracetam [Keppra] 500 mg tablet 500 mg PO Q12H 14 Days Qty: 28 0RF Print Language: Slovak
[2024-08-24 11:58] LABS: MANUAL DIFF FLAG NO
[2024-08-24 12:02] LABS: Appearance Urine Clear; Color Urine Yellow; Glucose Urine UA Negative (Negative); Leukocyte Esterase Urine Moderate (2+) (Negative); Nitrite Urine Negative (Negative); PH 8.5 (5.0-9.0); UMIC TRIGGER UACC YES; Urine Blood Negative (Negative); Urine Ketones Negative (Negative); Urine Protein Trace mg/dL (Neg-Trace)
[2024-08-24 12:04] LABS: Basophils Percent Auto 0.2 % (0-2); Eosinophils Absolute Auto 0.1 X10*3/uL (0.0-0.4); Eosinophils Percent Auto 0.4 % (0-4); Hematocrit 37.9 % (37.0-47.0); Hemoglobin 12.4 g/dl (12.0-16.0); Imm Gran Pct Auto 0.8 % (0.0-0.4); Lymphocytes Absolute Auto 0.9 X10*3/uL (1.2-4.9); Lymphocytes Percent Auto 7.2 % (20-40); Mean Corpuscular HGB Conc 32.7 g/dl (31.0-35.0); Mean Corpuscular Hemoglobin 29.7 pg (27.0-33.0); Mean Corpuscular Volume 90.9 fL (80.0-98.0); Mean Platelet Volume 9.7 fL (9.4-12.3); Monocytes Absolute Auto 0.4 X10*3/uL (0.1-1.2); Monocytes Percent Auto 3.1 % (2-11); Neutrophils Percent Auto 88.3 % (45-73); Platelet Count 172 X10*3/uL (160-400); Red Blood Count 4.17 X10*6/uL (4.20-5.50); Red Cell Distribution Width 13.8 % (11.0-16.0); White Blood Count 12.5 X10*3/uL (4.8-10.8)
[2024-08-24 12:17] LABS: Bacteria Urine 1+ (None Seen); Hyaline Casts Urine 0-2 /LPF (0-2); RBC Urine 0-2 /HPF (0-2); WBC Urine 0-5 /HPF (0-5)
[2024-08-24 12:22] LABS: Alanine Aminotransferase 14 U/L (0-31); Albumin Level 3.5 g/dL (3.5-5.0); Alkaline Phosphatase 63 U/L (39-117); Anion Gap 12 (12-20); Aspartate Amino Transferase 14 U/L (5-31); Bilirubin Direct < 0.1 mg/dL (0.0-0.5); Bilirubin Total 0.3 mg/dL (0.0-1.0); Blood Urea Nitrogen 6 mg/dL (9-16); Calcium 8.9 mg/dL (8.4-10.2); Carbon Dioxide 25 mmol/L (22-29); Chloride 105 mmol/L (96-108); Creatinine Clr Calc Pharmacy 124.7; Estimated Glomerular Filt Rate > 60; Glucose Random 94 mg/dL (60-115); Magnesium 1.8 mg/dL (1.6-2.6); Sodium 138 mmol/L (135-145); Total Protein 6.5 g/dL (6.5-8.0)
[2024-08-24 17:57] VITALS: BP 106/48; PULSE 93; RESP 19; TEMP 36.6; O2SAT 98
[2024-08-24] MEDS: Ondansetron ODT 4 MG TAB.RAPDIS TRANSLINGU (17:59)
[2024-08-24] MEDS: levETIRAcetam 1,000 MG TABLET 1000 MG PO (20:36)
[2024-08-24 20:38] VITALS: BP 108/60; PULSE 88; RESP 20; TEMP -17.7; TEMP 0; O2SAT 98
== END 2024-08-24 20:39 | disposition home or self-care (01) ==
PROVIDERS: Physician Assistant; Emergency Provider Emergency Medicine; PCP Internal Medicine
DX: O99.353 Diseases of the nervous system complicating pregnancy, third trimester (principal); G40.909 Epilepsy, unspecified, not intractable, without status epilepticus; O9A.213 Injury, poisoning and certain other consequences of external causes complicating pregnancy, third trimester; S93.402A Sprain of unspecified ligament of left ankle, initial encounter; W06.XXXA Fall from bed, initial encounter; Y93.89 Activity, other specified; Y92.013 Bedroom of single-family (private) house as the place of occurrence of the external cause; Y99.9 Unspecified external cause status; Z3A.00 Weeks of gestation of pregnancy not specified; Z79.899 Other long term (current) drug therapy
CPT/HCPCS: 36415; 80048; 80076; 81001; 81003; 82550; 83735; 85025; 99282; 99283

== ENCOUNTER 2025-05-27 12:40 | Outpatient (AMB) | payer OTHER, SELFPAY ==
--- OUTSIDE RECORDS SUMMARY | 2025-05-27 12:42 | XMS_ITS | Clinical Summary ---
Author Organization [facility] [address] [place] [address] [place] [address] [place] [address] Phone Care Team Providers Care Servicer [employer] Name Role Phone Joselin Adamson MD Primary Care Provider [phone] Allergies Active Allergy Reactions Criticality Noted Date Comments Fruit Extracts 06/11/2014 Grass Pollen 03/28/2016 Medications vitamin iron fum-folic acid 28-0.8 mg per tablet Take 1 tablet by mouth 1 (one) time each day with breakfast. 90 each 3 10/12/2024 Active ibuprofen (ADVIL,MOTRIN) 800 mg tablet Take 1 tablet (800 mg total) by mouth every 6 (six) hours if needed for mild pain or moderate pain. 60 tablet 1 10/11/2024 Active norethindrone (RAYSHAWN,Kay RAMIREZ,MICRONOR ) 0.35 mg tabletIndicatio ns: control counseling Take 1 tablet (0.35 mg total) by mouth 1 (one) time each day. 28 tablet 11 12/01/2024 11/30/19 26 Active Active Problems Problem Noted Date Diagnosed Date Chronic otitis externa 10/13/2024 Migraine 10/13/2024 , delivered 10/11/2024 Migraine with aura 08/18/2024 Overview (08/18/2024): 08/02 - trial of riboflavin and magnesium Assessment & Plan (10/11/2024 9:23 AM EST): Tylenol 1000mg po q 6 hrs prn Cystic fibrosis carrier 05/20/2024 Overview (08/18/2024): Partner to be offered testing Assessment & Plan (10/11/2024 9:23 AM EST): Her declined testing History of successful vagina l after , currently 04/08/2024 Overview (12/01/2024): X2 Assessment & Plan (10/11/2024 9:23 AM EST): Patient had been previously counseled. Upon arrival she was recounseled on the risk of trial of labor after section. The risk included and not limited to uterine rupture Maternal: Emergency section, with the increased risk of bleeding, infection and damage to nearby organs. : Injury at the time of delivery, hypoxia which may lead to endorgan damage, brain damage, or . In the event of bleeding the option of a blood transfusion with the risk of infection, allergic reaction and/or anaphylaxis He is a good candidate for a trial of labor after section as she has had 1 successful , is in early labor and fetus is cephalic. Epilepsy complicating pregna ncy, unspecified trimester ([facility] V24, [facility] V28) 04/08/2024 Overview (10/13/2024): Pt had appointment with neurologist 04/08/2024-she is taking 1000mg Keppra BID. Grand mal. She reports last seizure was 01/2024. Repeat visit in June. Repeat seizure 06/22 and while taking normal dose. Has appt 07/[address] Olsen. S/w Dr. Olsen from ED and he said to follow up. Last Assessment & Plan: Follow up with Dr. Olsen as scheduled and then will see Helen the following week to confirm if she has any new recommendations. Seizure ([facility] V24, [facility] V28) 01/24/2022 Overview (10/13/2024): 11/10/21-in the setting of use of multiple substances earlier that day including marijuana, nicotine vape pen, hookah, and alcohol 05/25/22 reports she was dx'd with epilepsy and is taking Keppra 08/24- Pt reports she had a Sz at home and went to [facility]- she never called [facility]. She has a left sprain ankle. She had a second Sz that night- she did not seek care that time. She seen Neurology last week and discussed possibly changing Sz meds but has not made the change yet until she speaks to [facility] about possible early IOL/Delivery. Will refer to [facility]. She is currently taking Kepra 1,000mg BID Marijuana use 06/15/2021 Overview (10/13/2024): Only vape pen once in a while for anxiety prior to . Pos IP labs Anxiety and depression 12/14/2020 Overview (12/01/2024): Was on medicaiton when she was [age] Denies hx of depression 08/13- 28 weeks EPDS- 7, stable on no meds- talks to therapist biweekly 11/2024- PP- EPDS- 4, stable with therapist. Denies PP depression or SI/HI Last Assessment & Plan: Stephani following with therapist Anxiety 10/21/2015 Overview (08/18/2024): 11/01 - didn't like how Zoloft made her feel, stopped it. Now just has a therapist. Knee instability 08/12/2014 Assessment & Plan (10/11/2024 9:23 AM EST): Monitor after delivery -Needed PT or walker. Chronic serous otitis media 10/27/2010 Resolved Problems Problem Noted Date Diagnosed Date Resolved Date Supervision of other normal , antepartum 10/13/2024 12/01/2024 Overview (10/13/2024): 1. [facility] site: [address] 2. Delivery site: [facility] 3. Mobile Mommas: No 4. Dating criteria: LMP only 5. Blood type: A+ 6. Genetic screening: Nuchal Date: 04/23/2024 Panorama- Low risk Horizon- Carrier for SF AFP- deferred 6. GBS: Bacteriuria- treat in labor 7. FOB name: Tyrell Guzman [phone] 8. Plans A. Epidural or other pain management - B. Labor support identified - C. Tdap - Date:08/13, Flu - Date: D. Breast or Bottle feed: breast E. Baby's name - F. Circumcision - 9. Hospital Course: labor 10/09/2024 10/11/2024 Assessment & Plan (10/11/2024 9:23 AM EST): 36w4d, admit for PCN and expected management Anemia during in second trimester 07/13/2024 12/01/2024 Overview (10/13/2024): Cutoff hemoglobin levels: First trimester <11.0 Second trimester <10.5 Third trimester <11.0 <10.0 -If micro or normocytic anemia - tx with oral Fe (sulfate or gluconate) every other day, repeat CBC 2-3 weeks -If normalized, continue until 6 weeks -If not normalized, make sure compliant and if so, refer to Heme for iron infusion -If macrocytic anemia with MCV>100, then order B12 and folate levels and treat prn, recheck in 2-3 weeks -If normalized, continue until 6 weeks -If not, make sure compliant and if so, refer to Heme GBS bacteriuria 04/15/2024 10/11/2024 Overview (08/18/2024): Treat in labor Last Assessment & Plan: Treat in labor. Epilepsy complicating pregna ncy, unspecified trimester ([facility] V24, [facility] V28) 04/08/2024 Overview (08/18/2024): Pt had appointment with neurologist 04/08/2024-she is taking 1000mg Keppra BID. Grand mal. She reports last seizure was 01/2024. Repeat visit in 3 months. Last Assessment & Plan: Continue current dose and follow up as scheduled with neuro in 3 months. Assessment & Plan (10/11/2024 9:23 AM EST): Seizure precautions Seizure ([facility] V24, [facility] V28) 01/24/2022 10/13/2024 Overview (08/18/2024): 11/10/21-in the setting of use of multiple substances earlier that day including marijuana, nicotine vape pen, hookah, and alcohol 05/25/22 reports she was dx'd with epilepsy and is taking Keppra Assessment & Plan (10/11/2024 9:23 AM EST): 1000 mg PO BID Marijuana use 06/15/2021 10/11/2024 Overview (08/18/2024): Pos IP labs Assessment & Plan (10/11/2024 9:23 AM EST): UDS ordered Anxiety and depression 12/14/202010/13 Overview (08/18/2024): Was on medicaiton when she was [age] Denies hx of depression Last Assessment & Plan: Cotninue following with therapist Immunizations Name Administration Dates Next Due DTaP (Infanrix) 6wks to less than 7yo ,09/18/1999,1997,07/13,1997 [id number] (Pentacel) 2mo to less than 5yo 05/13/1998,1997,1997,04/22 HPV, Quadrivalent 11/30/2008,07/30/2008,05/20/20 08 Hepatitis B Pediatric (Enger ix B; Recombivax HB) to less than 20 yo 1997,1997,1997 IPV Inactivated polio (Ipol) 6wks and older 06/12/2002,05/13/1998,1997,04/22 Influenza trivalent, 0.5mL, preservative free (Fluarix; FluLaval; Fluzone) ages 6mo and older (Afluria) 3 years and older 08/12/2015,08/12/2014 Influenza trivalent, with pr eservative (Fluzone; Afluria) 6mo and older 09/02/2019,10/19/2016,10/27/2010 MMR, measles mumps and rubel la Live (Priorix; M-M-R II) 12mo and older 06/12/2002,05/13/1998 Meningococcal MCV4P 08/12/2014,05/20/2008 Tdap Tetanus diptheria acell ular pertussis (Boostrix; Adacel) 7yo and older 08/13/2024,05/03/2021,08/05/2019,02/19,05/20/2008 Varicella live (Varivax) 12m o and older 08/12/2014,03/28/2000 Surgical History Surgery Date Site/Laterality Comments TYMPANOSTOMY TUBE PLACEMENT PROCEDURE: HISTORICAL PE TUBES; COMMENT: 3 times OTHER SURGICAL HISTORY 2018 PROCEDURE: ANESTHESIA FOR SECTION Medical History Medical History Date Comments Eczema DX:Eczema Seasonal allergies DX:Seasonal a llergies; COMMENT: spring time Migraine DX:Migraine; COM MENT: with aura Knee instability DX:Knee instabi lity; COMMENT: 08/01 - referred to ortho , home PT, xray Epilepsy with status epilept icus, not intractable ([facility] V24, [facility] V28) DX:Epilepsy wit h status epilepticus, not intractable ([facility]) ASCUS of cervix with negativ e high risk HPV 12/02/2020 DX:ASCUS of cervix with nega tive high risk HPV; COMMENT: 02/2018 ASCUS HPV not documented 04/2019 negative cytology Family History Medical History Relation Name Comments Breast cancer Aunt 1 maternal great aunt Ovarian cancer Aunt 2 maternal side 50s No Known Problems Brother No Known Problems Half-Brother No Known Problems Half-Sister Pancreatic cancer Maternal Grandfather Hypertension Maternal Grandmother Hypertension Mother migraines Other: cancer-[place] Paternal Grandfather No Known Problems Sister Diabetes Uncle 1 DM 1 Lung cancer Uncle 2 geat uncle Uterine cancer Neg Hx Relation Name Status Comments Aunt 1 maternal Aunt 2 Brother Daughter 1 Alive Daughter 2 Alive Daughter 3 Alive Father Alive Half-Brother Alive Half-Sister Alive Maternal Grandfather Maternal Grandmother Mother Alive Paternal Grandfather Paternal Grandmother Alive Sister Uncle 1 Uncle 2 Social History Tobacco Use Types Packs/Day Years Used Date Smoking Tobacco: Never Smokeless Tobacco: Never Alcohol Use Standard Drinks/Week Comments No 0 (1 standard drink = 0.6 oz pur e alcohol) Housing Instability Answer Date Recorde d Are you worried that in the next 2 months you may not have stable housing? No 10/01/2024 Food Access & Nutrition Answer Date Rec orded Do you have access to a vari ety of food including fruits and vegetables? No 10/01/2024 Health Literacy Answer Date Recorded How often do you need to hav e someone help you when you read instructions, pamphlets, or other written material from your doctor or pharmacy? Never 10/01/2024 Caregiver: How often do you need to have someone help you when you read instructions, pamphlets, or other written material from your doctor or pharmacy? Not on file 10/01/2024 Financial Risk Answer Date Recorded How hard is it for you to pa y for the very basics like food, housing, medical care, and air conditioning / heating? Not very hard 10/01/2024 Transportation Answer Date Recorded Has the lack of transportati on kept you from meetings, work, or from getting things needed for daily living? No Has the lack of transportati on kept you from medical appointments or from getting medications? No 10/01/2024 Social Isolation Answer Date Recorded How often do you feel lonely or isolated from those around you? Sometimes 10/01/2024 Food Risk Answer Date Recorded Within the past 12 months we worried whether our food would run out before we got money to buy more. Never true 10/01/2024 Within the past 12 months th e food we bought just didn't last and we didn't have money to get more. Never true 10/01/2024 Dependent Care Answer Date Recorded Do you need help finding or paying for care for your loved ones. For example, children's lunchroom supervisor or elderly care for an older adult? No 10/01/2024 Education Answer Date Recorded Do you think completing more education or training, like finishing a GED, going to college, or learning a trade, would be helpful for you? N/A 10/01/2024 Employment and Income Answer Date Recor ded During the last four weeks, have you been actively looking for work? No 10/01/2024 Living Situation Answer Date Recorded What is your living situation? 1 12/01/2023 Interpersonal Safety Answer Date Record ed Physical Abuse 10/09/2024 Verbal Abuse 10/09/2024 Comments No Sex and Gender Information Value Date Recorded Sex Assigned at Not on file Legal Sex Female 9:47 PM EST Gender Identity Not on file Sexual Orientation Not on file Obstetrics History Para Term AB IAB SAB Ectopic Multiple Livin g Live Births 5 4 3 1 1 0 1 0 0 4 4 Date Outcome GA Total Labor Labor/2nd/3rd Weight Sex Type Anes PTL Muna A1 A5 Name Clin 2016 Term 3827 g (135 oz) F Vag-S pont Epidur al N Livin g Complications:None 2016 SAB 2018 Term 37w 0d 3260 g (115 oz) F CS-LT ranv N Livin g Complications:None 2020 Term 40w 0d 3317 g (117 oz) F Vag-S pont N Livin g Complications:None 2023 36w 4d 0h 13m 0h 03m/0h 10m 3040 g (107.2 oz) F Vag-S pont None Y Livin g 8 9 Teresa swann, CNM Complications:None Delivery Location:[facility] Last Filed Vital Signs Vital Sign Reading Time Taken Comments Blood Pressure 97/54 12/01/2024 10:02 AM EST Pulse 90 10/11/2024 8:00 AM EST Temperature 36.6 C (97.9 F) 10/11/2024 8:00 AM EST Respiratory Rate 16 10/11/2024 8:00 AM EST Oxygen Saturation 100% 10/11/2024 8:00 AM EST Inhaled Oxygen Concentration - - Weight 64.5 kg (142 lb 3.2 oz) 12/01/2024 10:02 AM EST Height 157.5 cm (5' 2 ) 10/09/2024 2:32 PM EST Body Mass Index 26.01 10/09/2024 2:32 PM EST Plan of Treatment Health Maintenance Due Date Last Done Comments COVID-19 Vaccine ( season) 2024 Influenza Vaccine (#1) 2025 9, 10/19/2016, 08/12/2015, Additional history exists Depression Screening 08/13/2025 08/13/2024 Social Influencers of Health Screening 10/01/2025 10/01/2024 Cervical Cancer Screening: Pap Smear 04/22/2027 04/22/2024, 04/22/2024, 04/22/2024, Additional history exists Cholesterol Screening (Lipid Panel) 03/09/2029 03/09/2024 DTaP,Tdap,and Td Vaccines (11 - Td or Tdap) 08/13/2034 08/13/2024, 05/03/2021, 08/05/2019, Additional history exists Hepatitis B Vaccines Completed 1997, 1997, 1997 HIB Vaccines Completed 05/13/1998, 04/19, 1997, Additional history exists IPV Vaccines Completed 06/12/2002, 04/19, 05/13/1998, Additional history exists MMR Vaccines Completed 06/12/2002, 05/13/1998 HPV Vaccines Completed 11/30/2008, 07/19, 05/20/2008 Meningococcal ACWY Vaccine Completed 08/12/2014, Varicella Vaccines Completed 07/04/2021, 0 08/12/2014, 03/28/2000 HIV Screening Completed 04/08/2024, 04/08/2024 Hepatitis C Screening Completed 04/08/2024 Hepatitis A Vaccines Aged Out No long er eligible based on patient's age to complete this topic Meningococcal B Vaccine Aged Out No l onger eligible based on patient's age to complete this topic Pneumococcal Vaccine: Pediatrics (0 to 5 Years) and At-Risk Patients (6 to 49 Years) Aged Out No longer eligible based on patient's age to complete this topic RSV Immunization Patients Under 20 months Aged Out No longer eligible based on patient's age to complete this topic Procedures Procedure Name Priority Date/Time Associated Diagnosis Comments DEPRESSION SCREENING Routine 08/13/2024 HPV Routine 04/22/2024 HEPATITIS C SCREENING Routine 04/08/2024 HIV SCREENING Routine 04/08/2024 LIPID PANEL Routine 03/09/2024 from Last 3 Months or Most Recently Relevant to Health Maintenance Results * Depression Screening (08/13/2024) Depression Screening abstracted [facility] Provider HEALTH MAINTENANCE Final Result * Cervical Cancer Screening: HPV (04/22/2024) Pathologist [facility] Cervical Cancer Screening: HPV Negative abstracted [facility] Provider HEALTH MAINTENANCE Final Result * HIV Screening (04/08/2024) Pathologist [facility] HIV Screening abstracted [facility] Provider HEALTH MAINTENANCE Final Result * Hepatitis C Screening (04/08/2024) Pathologist [facility] Hepatitis C Screening abstracted [facility] Provider HEALTH MAINTENANCE Final Result * Lipid panel (03/09/2024) [facility] LDL/HDL Ratio 3 0 - 4 Triglycerides 38 0 - 150 mg/dL Cholesterol 127 0 - 200 mg/dL HDL 41 >=40 mg/dL LDL Cholesterol 79 0 - 100 mg/dL Blood Venous blood specimen / Unknown [facility] Provider LAB BLOOD ORDERABLES Ruthann l Result from Last 3 Months or Most Recently Relevant to Health Maintenance Insurance [facility] Advance Directives * Full Code - Default (Latest Code Status on File) Date Activated Date Inactivated Comments 10/09/2024 9:30 PM 10/11/2024 2:44 PM * Full Code - Default Date Activated Date Inactivated Comments 10/09/2024 12:08 PM 10/09/2024 9:30 PM This is o rder is used when code status has not been discussed with the patient, or code status is otherwise unknown/unconfirmed To update the patient's code status, place a code status order. Do not modify or discontinue any currently active code status orders. Care Teams [employer] Relationship Specialty Start Date End Date Joselin Adamson MD [address] [place] [address] PCP - General Internal Medicine 01/01/22
--- NOTE | 2025-05-27 12:45 | A.OFFVIS_ITS ---
Intake Visit Reasons: 3 month epilepsy Allergies No Known Allergies (No Known Allergies*) Allergy (Verified 08/24/24 11:32) seasonal Allergy (Unknown, Uncoded 08/24/24 11:32) Itching HPI Comments Details: 30 yo RH woman with migraine headaches and seizure disorder. She had first generalized seizure while asleep in Oct, and two similar events in January of 2022. There was no known triggers. There was no family h/o epilepsy or drug use. Each episode involved generalized shaking, tongue bite, and urination. She also had episodes of staring, smelling burning rubber, and something not right about her, noted by other people. Her amb EEG revealed bifrontal sharply contored theta range discharges, including the time when she reported symptoms (staring off, burning smells, other people noticing something not right about her). She was still having a lot of headaches and staring spells. [facility] Medical History (Updated 05/27/25 @ 12:48 by Carlos Olsen MD) Sinusitis Migraine Hearing difficulty Depression with anxiety Epilepsy Review of Systems Const Details: Constitutional:?No fever, chills, fatigue, weight loss, or night sweats. HEENT:?No headache, vision changes, hearing loss, nasal congestion, sore throat. Neurological:?Headaches and staring spells Psychiatric:?Anxiety and depression Endocrine:?No heat/cold intolerance, polydipsia, polyuria, or hair/skin changes. Hematologic/Lymphatic:?No easy bruising, bleeding, or lymphadenopathy. Integumentary (Skin):?No rash, lesions, itching, or color changes. ? Physical Exam Neuro Other: Mental Status: Alert and oriented to person, place, and time. Normal attention. Normal spontaneous speech, fluency, and comprehension. No obvious issues with mood and memory. Affect is appropriate. Cranial Nerves: CN II: Visual venegas full to confrontation, visual acuity intact. CN III, IV, : Pupils equal, round, reactive to light and accommodation. Extraocular movements are normal. CN V: Facial sensation is normal. CN VII: Facial movements symmetrical. CN VIII: Hearing intact to bedside conversation is normal. CN IX, X: Palate elevates symmetrically. CN XI: Shoulder shrug and head turn symmetrical. CN XII: Tongue midline without atrophy or fasciculations. Extrapyramidal: Full facial expressions and blinking. No rigidity. Movements are appropriate with no tremor or abnormality. Speech: Normal; no dysarthria or tremor. Assessment & Plan Assessment & Plan (1) Seizure disorder: Comment: Amb EEG at [facility] in Jan 2024: bifrontal sharp theta discharges vs SREDA while pt reported staring episodes MRI brain W[place] [facility] [place] 2022: Brain OK, sinus disease Routine EEG at [facility] in 2021: WNL CT brain WO at [facility] in Jan 2022: WNL CT C spine at [facility] [place] Jan 2022: OK, mod R thyroid nodule. Code(s): G40.909 - Epilepsy, unspecified, not intractable, without status epilepticus Category: Medical (2) Migraine without aura: Code(s): G43.009 - Migraine without aura, not intractable, without status migrainosus Category: Medical Qualifiers: Status migrainosus presence: without status migrainosus Intractability: not intractable Qualified Code(s): G43.009 - Migraine without aura, not intractable, without status migrainosus Plan Impression: a: Seizure disorder b: Migraine Rec: As she continues to have these symptoms despite taking large dose of levetiracetam, I have requested another ambulatory EEG to figure out exact nature of these symptoms, epileptic versus not. Orders: Orders EEG ambulatory Today G40.909 - Epilepsy, unspecified, not intractable, without status epilepticus Coding Level of Care Code Tele Est Pt Level 4 (42133) Diagnoses Seizure disorder G40.909 Migraine without aura and without status migrainosus, not intractable G43.009 Status migrainosus presence: without status migrainosus Intractability: not intractable
== END 2025-05-27 12:53 | disposition home or self-care (01) ==
LOC: HO.HSM 12:40
PROVIDERS: PCP Internal Medicine; Visit Provider Psychiatry & Neurology Neurology
DX: G40.909 Epilepsy, unspecified, not intractable, without status epilepticus (principal); G43.009 Migraine without aura, not intractable, without status migrainosus
CPT/HCPCS: 99214

== ENCOUNTER → 2025-05-27 12:40 | Outpatient (BNVA) | payer OTHER, SELFPAY | PROVIDERS: PCP Internal Medicine; Visit Provider Psychiatry & Neurology Neurology | DX: G43.009 Migraine without aura, not intractable, without status migrainosus (principal); G40.909 Epilepsy, unspecified, not intractable, without status epilepticus | CPT/HCPCS: 99212 ==